=== PATIENT | female | born 1990 | race Caucasian/White ===

== ENCOUNTER 2016-07-18 09:04 | Emergency (ER) | payer BC ==
--- NOTE | 2016-07-18 09:08 | EDPHY ---
H & P Time Seen by Provider: 07/18/16 09:05 HPI/ROS: CHIEF COMPLAINT: Nausea vomiting diarrhea HISTORY OF PRESENT ILLNESS: 25-year-old female generally healthy arrives via ambulance complaining of nausea, vomiting, diarrhea since 5:00 a.m. today. She was given 4 mg of Zofran via EMS and states that she is feeling significant improvement. No abdominal pain. No fever or chills. No myalgias. No flu-like symptoms. No URI complaints. No urinary complaints. Regular menstrual period. No international travel. No known sick contacts. No rash. REVIEW OF SYSTEMS: A ten point review of systems was performed and is negative with the exception of the items mentioned in the HPI PAST MEDICAL & SURGICAL HISTORY: No history of abdominal surgeries or chronic abdominal pathology SOCIAL HISTORY: Daily marijuana use. PHYSICAL EXAM (Prior to examination, patient consented to physical exam, hands were washed and my usual and customary physical exam procedures followed) 1) GENERAL: Well-developed, well-nourished, alert and oriented. Appears to be in no acute distress. smiling. 2) HEAD: Normocephalic, atraumatic 3) HEENT: Pupils equal, round, reactive to light bilaterally. Sclera anicteric. Nasopharynx, oropharynx, clear, no lesions. Moist mucous membranes 4) NECK: Full range of motion, no meningeal signs. 5) LUNGS: Clear auscultation bilaterally, no wheezes, no rhonchi, no retractions. 6) HEART: Regular rate and rhythm, no murmur, no heave, no gallop. 7) ABDOMEN: No guarding, no rebound, no focal tenderness, negative McBurney's, negative Beltran's, negative Rovsing's, negative peritoneal sign,I am unable to elicit any abdominal pain on exam 8) MUSCULOSKELETAL: Moving all extremities, no focal areas of tenderness, no obvious trauma. No peripheral edema or discoloration. 9) BACK: No CVA tenderness, no midline vertebral tenderness, no fluctuance, no step-off, no obvious trauma, no visual or palpable abnormality. 10) SKIN: No rash, no petechiae. 11) Psychiatric: Patient is oriented X 3, there is no agitation. DIFFERENTIAL DIAGNOSIS: My differential diagnosis includes, but is not limited to, acute appendicitis, acute cholecystitis, bowel obstruction, acute pancreatitis, ovarian torsion, ectopic , gastritis and urinary tract infection. The patient understands that this diagnosis is provisional and can never be 100% accurate. This is a partial list of diagnoses considered. These considerations are based on history, physical exam, past history and reassessment. Constitutional: Initial Vital Signs Temperature (C) 36.2 C 07/18/16 09:04 Heart Rate 81 07/18/16 09:04 Respiratory Rate 16 07/18/16 09:04 Blood Pressure 121/56 H 07/18/16 09:04 O2 Sat (%) 100 07/18/16 09:04 O2 Delivery Mode Room Air Allergies/Adverse Reactions: Sulfa (Sulfonamide Antibiotics) Allergy (Unknown, Verified 06/10/10 02:23) Home Medications: Medication Instructions Recorded Control Pills 06/10/10 Cephalexin [Keflex] 500 mg PO TID #30 cap 06/10/10 Ondansetron Odt [Zofran Odt] 4 mg PO Q4PRN PRN #10 tab 07/18/16 Medical Decision Making ED Course/Re-evaluation: This patient has been re-evaluated with serial examinations. At most recent exam at 10:12 a.m. she is tolerating oral intake. I re-examined her abdomen which is soft no guarding no rebound McBurney's point pain. [place] [id number]. I think that acute surgical abdominal pathology such as acute appendicitis, ectopic , acute cholecystitis. I do not think that imaging studies or hospitalization currently indicated. She is able tolerate oral intake. We discussed possibility of cannabis hyperemesis syndrome. - Data Points Laboratory Results: Laboratory Results 07/18/16 09:15 07/18/16 09:15 07/18/16 09:15 WBC 19.33 H 10^3/uL (3.80-9.50) RBC 4.81 10^6/uL (4.18-5.33) Hgb 14.6 g/dL (12.6-16.3) Hct 42.2 % (38.0-47.0) MCV 87.7 fL (81.5-99.8) MCH 30.4 pg (27.9-34.1) MCHC 34.6 g/dL (32.4-36.7) RDW 12.0 % (11.5-15.2) Plt Count 275 10^3/uL (150-400) MPV 10.4 fL (8.7-11.7) Neut % (Auto) 90.8 H % (39.3-74.2) Lymph % (Auto) 4.2 L % (15.0-45.0) Arroyo % (Auto) 4.0 L % (4.5-13.0) Eos % (Auto) 0.3 L % (0.6-7.6) Baso % (Auto) 0.2 L % (0.3-1.7) Nucleat RBC Rel Count 0.0 % (0.0-0.2) Absolute Neuts (auto) 17.58 H 10^3/uL (1.70-6.50) Absolute Lymphs (auto) 0.81 L 10^3/uL (1.00-3.00) Absolute Monos (auto) 0.77 10^3/uL (0.30-0.80) Absolute Eos (auto) 0.05 10^3/uL (0.03-0.40) Absolute Basos (auto) 0.03 10^3/uL (0.02-0.10) Absolute Nucleated RBC 0.00 10^3/uL (0-0.01) Immature Gran % 0.5 % (0.0-1.1) Immature Gran # 0.09 10^3/uL (0.00-0.10) Sodium 142 mEq/L (134-144) Potassium 4.7 mEq/L (3.5-5.2) Chloride 112 H mEq/L (97-110) Carbon Dioxide 17 L mEq/l (22-31) Anion Gap 13 mEq/L (8-16) BUN 10 mg/dL (7-23) Creatinine 0.7 mg/dL (0.6-1.0) Estimated GFR > 60 Glucose 101 H mg/dL (70-100) Calcium 8.6 mg/dL (8.5-10.4) Total Bilirubin 0.6 mg/dL (0.1-1.4) Conjugated Bilirubin 0.1 mg/dL (0.0-0.5) Unconjugated Bilirubin 0.5 mg/dL (0.0-1.1) AST 25 IU/L (14-46) ALT 36 IU/L (9-52) Alkaline Phosphatase 63 IU/L (38-126) Total Protein 6.7 g/dL (6.3-8.2) Albumin 3.8 g/dL (3.5-5.0) Lipase 124.0 IU/L (23-300) Beta HCG, Qual NEGATIVE Medications Given: Discontinued Medications Sodium Chloride (Ns) 1,000 mls @ 0 mls/hr IV ONCE ONE PRN Reason: Wide Open Stop: 07/18/16 09:21 Last Admin: 07/18/16 09:21 Dose: 1,000 mls Departure - Departure Disposition: Home, Routine, Self-Care Clinical Impression: Nausea & vomiting Condition: Good Instructions: Acute Nausea and Vomiting (ED) Additional Instructions: Seek immediate medical attention if you develop new or worsening symptoms, If you develop abdominal pain, if you develop fevers, chills, inability to tolerate oral intake or any other symptoms that concerns you. Referrals: SONAL GREGG [Primary Care Provider] - 1-2 days without fail Prescriptions: Ondansetron Odt [Zofran Odt] 4 mg PO Q4PRN PRN #10 tab PRN Reason: Nausea
[2016-07-18] MEDS ORDERED: NS 1,000 ML IV ONE (09:20)
[2016-07-18 09:26] LABS: % IMMATURE GRANULYOCYTES 0.5 % (0.0-1.1); ABSOLUTE IMMATURE GRANULOCYTES 0.09 10^3/uL (0.00-0.10); ADD DIFF? NO; ADD MORPH? NO; ADD SCAN? NO; ATYPICAL LYMPHOCYTE FLAG 0 (0-99); FRAGMENT RBC FLAG 0 (0-99); HEMATOCRIT 42.2 % (38.0-47.0); HEMOGLOBIN 14.6 g/dL (12.6-16.3); LEFT SHIFT FLG 0 (0-99); LIPEMIA HEMOLYSIS FLAG 90 (0-99); MEAN CELL HEMOGLOBIN 30.4 pg (27.9-34.1); MEAN CELL HEMOGLOBIN CONCENTR. 34.6 g/dL (32.4-36.7); MEAN CELL VOLUME 87.7 fL (81.5-99.8); MEAN PLATELET VOLUME 10.4 fL (8.7-11.7); PLATELET CLUMPS FLAG 60 (0-99); PLATELET COUNT 275 10^3/uL (150-400); RED BLOOD CELL COUNT 4.81 10^6/uL (4.18-5.33)
[2016-07-18 09:46] LABS: ALANINE AMINOTRANSFERASE 36 IU/L (9-52); ALBUMIN 3.8 g/dL (3.5-5.0); ALKALINE PHOSPHATASE 63 IU/L (38-126); ANION GAP 13 mEq/L (8-16); ASPARTATE AMINOTRANSFERASE 25 IU/L (14-46); BILIRUBIN,TOTAL 0.6 mg/dL (0.1-1.4); BILIRUBIN-CONJUGATED 0.1 mg/dL (0.0-0.5); BILIRUBIN-UNCONJUGATED 0.5 mg/dL (0.0-1.1); CALCIUM 8.6 mg/dL (8.5-10.4); CARBON DIOXIDE 17 mEq/l (22-31); CHLORIDE 112 mEq/L (97-110); CREATININE 0.7 mg/dL (0.6-1.0); GLOMERULAR FILTRATION RATE > 60; GLUCOSE 101 mg/dL (70-100); POTASSIUM 4.7 mEq/L (3.5-5.2); SODIUM 142 mEq/L (134-144); TOTAL PROTEIN 6.7 g/dL (6.3-8.2)
[2016-07-18 10:49] VITALS: BP 107/77; PULSE 97; RESP 12; TEMP 97.8; O2SAT 96
== END 2016-07-18 10:47 | disposition home or self-care (01) ==
LOC: EDUNIT#
DX: R11.2 Nausea with vomiting, unspecified (principal)